=== PATIENT | male | born 1995 | race Hispanic/Latino ===

== ENCOUNTER 2017-12-29 22:23 | Emergency (ER) | payer SELFPAY ==
[2017-12-29] MEDS ORDERED: Diazepam 5 MG TAB ONE (23:39)
[2017-12-29] MEDS ORDERED: Ketorolac Tromethamine 30 MG/ML VIAL ONE (23:40)
[2017-12-30] LABS: Bilirubin Negative (Negative); Blood, Urine Negative (Negative); Clarity CLEAR (Clear); Glucose, Urine (Dipstick) Negative (Negative); Leukocyte Small (Negative); Nitrite Negative (Negative); Protein, Urine (Dipstick) Trace mg/dL (Neg-Trace); Specific Gravity, Urine 1.028 (1.002-1.036); pH, Urine 5.5 (5.0-9.0)
[2017-12-30 00:02] LABS: Bacteria/HPF None Seen HPF (None Seen); Pathc Cast-AUWi Flag 1.01 (0-2.49); Squamous Epithelial 0-3 HPF (0-3)
[2017-12-30 00:04] LABS: Hyaline Casts/LPF 0-3 HYALINE CAST LPF (0-3 Hyaline); Oval Fat Bodies/HPF None Seen HPF (None Seen); Renal Epithelial None Seen HPF (0-3); Sperm/HPF None Seen HPF (None Seen); Transitional Epithelial NONE SEEN HPF (0-3); Trichomonas/HPF None Seen HPF (None Seen); Yeast-All Forms None Seen HPF (None Seen)
[2017-12-30] MEDS ORDERED: Ondansetron ODT 4 MG TAB ONE (00:54)
--- NOTE | 2017-12-30 07:43 | RAD ---
LUMBAR SPINE 3 VIEWS: Date: 12/30/17 HISTORY: Low back pain. FINDINGS/IMPRESSION: No fracture, subluxation, or bony destruction is identified. POS: [facility]
[2018-01-01 22:11] LABS: Chlamydia by PCR Not Detected (NotDetected); GC by PCR Not Detected (NotDetected)
== END 2017-12-30 02:09 | disposition home or self-care (01) ==
LOC: ERS 22:23
DX: M54.5 Low back pain (principal)
CPT/HCPCS: 72100; 81003; 81015; 87086; 87491; 87591; 96372; J1885; J2270; Q0162

== ENCOUNTER 2017-12-30 21:37 | Emergency (ER) | payer SELFPAY ==
[2017-12-30] MEDS ORDERED: Diazepam 5 MG TAB ONE (21:59)
== END 2017-12-30 23:17 | disposition home or self-care (01) ==
LOC: ERS 21:37
DX: M54.5 Low back pain (principal); Z79.899 Other long term (current) drug therapy
CPT/HCPCS: 96372

== ENCOUNTER 2018-04-10 15:54 | Emergency (ER) | payer SELFPAY ==
[2018-04-10] MEDS ORDERED: Lidocaine 1% (PF) 30 ML VIAL ONE (16:13)
--- NOTE | 2018-04-10 16:37 | RAD ---
RIGHT HAND THREE VIEW 04/10/18 HISTORY: Fall. Injury. COMPARISON: Radiograph 05/10/15. FINDINGS: No acute fracture or malalignment. Soft tissues are unremarkable. IMPRESSION: No acute abnormality. POS: [facility]
[2018-04-10] MEDS ORDERED: Adacel (T-DAP) 0.5 ML VIAL ONE (16:42)
== END 2018-04-10 17:09 | disposition home or self-care (01) ==
LOC: ERS 15:54
DX: S61.212A Laceration without foreign body of right middle finger without damage to nail, initial encounter (principal); W26.8XXA Contact with other sharp object(s), not elsewhere classified, initial encounter
CPT/HCPCS: 12002; 90471; 90715; J2001

== ENCOUNTER 2018-04-19 18:10 | Emergency (ER) | payer SELFPAY | END 2018-04-19 19:08 | disposition home or self-care (01) | LOC: ERS 18:10 | DX: S61.212D Laceration without foreign body of right middle finger without damage to nail, subsequent encounter (principal) ==

== ENCOUNTER 2018-10-18 13:05 | Emergency (ER) | payer SELFPAY ==
[2018-10-18] MEDS ORDERED: Ondansetron ODT 4 MG TAB ONE (14:02)
[2018-10-18] MEDS ORDERED: Dicyclomine 20 MG TAB ONE (14:40)
[2018-10-18 15:06] LABS: Hemoglobin 16.9 g/dL (14.0-18.0); Mean Corpuscular HGB CONC 33.2 g/dL (32.0-36.0); Mean Corpuscular Hemoglobin 30.3 pg (27.0-31.0); Mean Corpuscular Volume 91.2 fL (78.0-98.0); Platelet Count 198 thou/uL (130-400); RBC Distribution Width 12.1 % (11.5-14.5); Red Blood Cell (RBC) Count 5.58 mill/uL (4.70-6.10); White Blood Cell (WBC) Count 16.2 thou/uL (4.8-10.8)
[2018-10-18 15:23] LABS: ALT (SGPT) 21 U/L (8-55); AST (SGOT) 19 U/L (5-34); Albumin 4.9 g/dL (3.5-5.0); Alkaline Phosphatase 80 U/L (40-150); Anion Gap 15 mmol/L (10-20); BUN (Urea Nitrogen) 14 mg/dL (8.9-20.6); Bilirubin, Total 1.4 mg/dL (0.2-1.2); Calc. Creatinine Clearance 0 mL/min (70-130); Calcium 9.9 mg/dL (7.8-10.44); Carbon Dioxide 22 mmol/L (22-29); Chloride 108 mmol/L (98-107); Estimated GFR-MDRD Greater than 90; Glucose 127 mg/dL (70-105); Potassium 3.7 mmol/L (3.5-5.1); Protein, Total 7.9 g/dL (6.0-8.3); Sodium 141 mmol/L (136-145)
[2018-10-18 15:32] LABS: Band 12 % (5-11); Lymphocytes 8 % (21-51); MDiff Complete? YES; Monocytes 2 % (0-10); Neutrophil 77 % (42-75); Platelet Morphology Comment Appears Adequate; RBC Morphology Normal; Reactive Lymphocytes 1 % (0-10)
[2018-10-18 15:39] LABS: Bilirubin Negative (Negative); Blood, Urine Negative (Negative); Clarity CLEAR (Clear); Glucose, Urine (Dipstick) Negative (Negative); Leukocyte Negative (Negative); Nitrite Negative (Negative); Protein, Urine (Dipstick) 30 mg/dL (Neg-Trace); Urobilinogen 0.2 mg/dL (0.2-1.0)
[2018-10-18 15:45] LABS: Bacteria/HPF None Seen HPF (None Seen); Hyaline Casts/LPF 0-3 HYALINE CAST LPF (0-3 Hyaline); Pathc Cast-AUWi Flag 0.13 (0-2.49); Squamous Epithelial 0-3 HPF (0-3); WBC/HPF 0-3 HPF (0-3)
[2018-10-18 15:51] LABS: Renal Epithelial None Seen HPF (0-3); Transitional Epithelial NONE SEEN HPF (0-3)
--- NOTE | 2018-10-18 15:59 | CT ---
ABDOMEN AND PELVIC CT SCAN WITH IV CONTRAST: HISTORY: Abdominal pain with nausea, vomiting, and diarrhea. COMPARISON: None. FINDINGS: Lung bases are clear. The liver, gallbladder, pancreas, spleen, and kidneys are unremarkable. A nor mal-appearing appendix. No abscess or abnormal fluid collection. No large or small bowel obstructio n. Mucosal folds are borderline thickened in the region of the jejunum, nonspecific. IMPRESSION: Borderline mucosal fold thickening in the jejunum. No evidence for other significant acute process. POS: [facility]
[2018-10-18] MEDS ORDERED: ISOVUE-370 76%-LOCM 1 ML ONE (17:22)
== END 2018-10-18 16:40 | disposition home or self-care (01) ==
LOC: ERS 13:05
DX: R11.2 Nausea with vomiting, unspecified (principal); R19.7 Diarrhea, unspecified
CPT/HCPCS: 74177; 80053; 81003; 81015; 83690; 85025; 96360; 96361; Q0162; Q9966